=== PATIENT | female | born 1970 | race Two or more races ===

== ENCOUNTER 2019-09-16 15:02 | Emergency (ER) | payer MEDICAID, OTHER ==
[~2019-09-16] VITALS: Ht 162.6 cm; Wt 82.1 kg
--- NOTE | 2019-09-16 15:40 | NUR ---
[employer]YCHOLOGIST: PT AMBULATORY TO ROOM WITH STEADY GAIT AT THIS TIME. DONOVAN
--- NOTE | 2019-09-16 16:20 | NUR ---
PT INTIALLY C/O LEFT EAR PAIN AND ARM PAIN BUT NOW IS C/O LEFT SHOULDER PAIN RADIATING ACROSS CHEST. PT PLACED ON MONIOTR AND EKG TO BE DONE.
[2019-09-16] MEDS ORDERED: ASPIRIN 81 MG TABLET CHEW PO ONE (16:30)
[2019-09-16] MEDS ORDERED: MORPHINE SULFATE 4 MG/ML, 1ML IVPush PRN (16:30)
[2019-09-16 16:38] LABS: BASOPHILS # (AUTO) 0.02 x10^3/uL (0-0.1); BASOPHILS % (AUTO) 0 % (0-1); EOSINOPHILS # (AUTO) 0.12 x10^3/uL (0-0.4); EOSINOPHILS % (AUTO) 2 % (1-7); LYMPHOCYTES # (AUTO) 1.79 x10^3/uL (1-3.4); LYMPHOCYTES % (AUTO) 26 % (22-44); MD NO; MEAN CORPUSCULAR HEMOGLOBIN 28.2 pg (27.0-34.8); MEAN CORPUSCULAR HGB CONC 33.6 g/dL (32.4-35.8); MEAN PLATELET VOLUME 8.2 fL (7.4-10.4); MONOCYTES # (AUTO) 0.49 x10^3/uL (0.2-0.8); MONOCYTES % (AUTO) 7 % (2-9); NEUTROPHILS # (AUTO) 4.49 x10^3/uL (1.8-6.8); NEUTROPHILS % (AUTO) 65 % (42-75); PLATELET COUNT 362 x10^3/uL (130-400); RED BLOOD COUNT 4.54 x10^6/uL (3.82-5.3); RED CELL DISTRIBUTION WIDTH 13.2 % (9.6-15.2)
[2019-09-16 16:41] LABS: ALBUMIN 3.7 g/dL (3.4-5.0); ANION GAP 8 mmol/L (5-15); CALCIUM 8.8 mg/dL (8.5-10.1); CHLORIDE 107 mmol/L (98-107); CREATININE 0.75 mg/dL (0.55-1.02)
[2019-09-16 16:45] LABS: TROPONIN I < 0.015 ng/mL (0.000-0.045)
[2019-09-16] MEDS ORDERED: ASPIRIN 81 MG TABLET CHEW ONE (17:07)
--- NOTE | 2019-09-16 17:10 | NUR ---
NO ASPIRIN OR MORPHINE NEEDED PER DR. DAVALOS AFTER REVIEWING TESTS.
[2019-09-16] MEDS ORDERED: KETOROLAC 30 MG/1 ML IM ONE (17:30)
[2019-09-16] MEDS ORDERED: KETOROLAC 60 MG/2 ML ONE (17:30)
--- NOTE | 2019-09-16 17:45 | NUR ---
REPORT TO KEITH SEGURA FOR LUNCH BREAK.
[2019-09-16 18:55] VITALS: BP 165/89
== END 2019-09-16 18:57 | disposition home or self-care (01) ==
LOC: ED 18:20
DX: M25.512 Pain in left shoulder (principal); H92.02 Otalgia, left ear; R94.31 Abnormal electrocardiogram [ECG] [EKG]
CPT/HCPCS: 36415; 71045; 80048; 82040; 83605; 84484; 85025; 93005; 96372; 99285; J1885; J7512

== ENCOUNTER 2020-02-24 11:23 | Emergency (ER) | payer MEDICAID ==
[~2020-02-24] VITALS: Ht 162.6 cm; Wt 85.5 kg
--- NOTE | 2020-02-24 11:45 | NUR ---
PATIENT ARRIVES WITH ONE WEEK OF BACK PAIN. WALKS WELL. COLLECTED URINE SAMPLE
[2020-02-24] MEDS ORDERED: ONDANSETRON ODT 4 MG ONE (11:52)
[2020-02-24] MEDS ORDERED: HYDROcodone/APAP 5/325 TABLET ONE (11:52)
[2020-02-24] MEDS ORDERED: CYCLOBENZAPRINE 10 MG TABLET ONE (11:52)
[2020-02-24] MEDS ORDERED: KETOROLAC 30 MG/1 ML ONE (11:52)
[2020-02-24] MEDS ORDERED: ONDANSETRON ODT 4 MG PO ONE (12:00)
[2020-02-24] MEDS ORDERED: KETOROLAC 30 MG/1 ML IM ONE (12:00)
[2020-02-24] MEDS ORDERED: HYDROcodone/APAP 5/325 TABLET PO ONE (12:00)
[2020-02-24] MEDS ORDERED: CYCLOBENZAPRINE 10 MG TABLET PO ONE (12:00)
[2020-02-24 12:49] VITALS: BP 168/88
--- NOTE | 2020-02-24 12:59 | NUR ---
DC REVIEWED. SHOWS UNDERSTANDING.
== END 2020-02-24 13:32 | disposition home or self-care (01) ==
LOC: ED 12:25
DX: S39.012A Strain of muscle, fascia and tendon of lower back, initial encounter (principal); M54.41 Lumbago with sciatica, right side; I10 Essential (primary) hypertension; Z90.49 Acquired absence of other specified parts of digestive tract; X58.XXXA Exposure to other specified factors, initial encounter; Y93.89 Activity, other specified; Y92.89 Other specified places as the place of occurrence of the external cause; Y99.8 Other external cause status
CPT/HCPCS: 72110; 96372; 99284; J1885; Q0162

== ENCOUNTER 2020-03-29 23:20 | Emergency (ER) | payer MEDICAID ==
[~2020-03-29] VITALS: Ht 162.6 cm; Wt 84.0 kg
[2020-03-29] MEDS ORDERED: ACETAMINOPHEN 500 MG TABLET ONE (23:58)
[2020-03-29] MEDS ORDERED: KETOROLAC 30 MG/1 ML ONE (23:58)
[2020-03-29] MEDS ORDERED: PROCHLORPERAZINE 5 MG/ML, 2ML ONE (23:58)
[2020-03-29] MEDS ORDERED: DIPHENHYDRAMINE 25 MG CAPSULE ONE (23:59)
[2020-03-30] MEDS ORDERED: DIPHENHYDRAMINE 25 MG CAPSULE PO ONE
[2020-03-30] MEDS ORDERED: KETOROLAC 30 MG/1 ML IVPush ONE
[2020-03-30] MEDS ORDERED: PROCHLORPERAZINE 5 MG/ML, 2ML IVPush ONE
[2020-03-30] MEDS ORDERED: ACETAMINOPHEN 500 MG TABLET PO ONE
[2020-03-30] MEDS ORDERED: SODIUM CHLORIDE 0.9% 1,000ML IVBOLUS ONE
[2020-03-30 00:03] LABS: BASOPHILS % (AUTO) 0 % (0-1); EOSINOPHILS % (AUTO) 3 % (1-7); LYMPHOCYTES % (AUTO) 25 % (22-44); MEAN CORPUSCULAR HEMOGLOBIN 29.3 pg (27.0-34.8); MEAN CORPUSCULAR HGB CONC 35.6 g/dL (32.4-35.8); MEAN PLATELET VOLUME 7.8 fL (7.4-10.4); MONOCYTES % (AUTO) 12 % (2-9); NEUTROPHILS % (AUTO) 60 % (42-75); PLATELET COUNT 322 x10^3/uL (130-400); RED BLOOD COUNT 4.47 x10^6/uL (3.82-5.3); RED CELL DISTRIBUTION WIDTH 13.9 % (9.6-15.2)
[2020-03-30 00:04] LABS: MD NO
[2020-03-30 00:12] LABS: ALBUMIN 3.6 g/dL (3.4-5.0); ANION GAP 9 mmol/L (5-15); CALCIUM 8.7 mg/dL (8.5-10.1); CHLORIDE 105 mmol/L (98-107); CREATININE 0.96 mg/dL (0.55-1.02)
--- NOTE | 2020-03-30 00:17 | NUR ---
PT REPORTS WORSENING HEADACHE OVER THE PAST FEW DAYS WITH GENERAL FATIGUE. PT PLEASANT AND COOPERATIVE, NO DISTRESS NOTED. PIV PLACED, LABS DRAWN AND PT MEDICATED FOR HEADACHE PER EMAR. BLANKET AND PILLOW PROVIDED, WILL RECHECK EFFECTIVENESS OF MEDICATIONS SOON
[2020-03-30 00:44] VITALS: BP 160/85
--- NOTE | 2020-03-30 01:08 | NUR ---
PT RESTING ON GURNEY, SLEEPING. WHEN I WOKE HER UP SHE REPORTS FEELING MUCH BETTER AFTER THE MEDICATIONS
== END 2020-03-30 01:48 | disposition home or self-care (01) ==
LOC: ED 03-30 00:17
DX: H92.03 Otalgia, bilateral (principal); Z20.822 Contact with and (suspected) exposure to COVID-19; R51.9 Headache, unspecified; M79.10 Myalgia, unspecified site; R07.9 Chest pain, unspecified; I10 Essential (primary) hypertension; Z90.49 Acquired absence of other specified parts of digestive tract
CPT/HCPCS: 36415; 71045; 80048; 82040; 85025; 87635; 93005; 96374; 96375; 99285; J0780; J1885; J7030; Q0163